=== PATIENT | female | born 1995 | race Caucasian/White ===

== ENCOUNTER 2018-09-02 15:45 | Outpatient (CLI) | payer MEDICAID | END 2018-09-02 17:56 | disposition home or self-care (01) | LOC: OBT 15:45 → L-D 15:45 → OBT 17:56 | DX: O26.843 Uterine size-date discrepancy, third trimester (principal); Z3A.38 38 weeks gestation of pregnancy | CPT/HCPCS: 76815; 76818 ==

== ENCOUNTER 2018-09-07 01:27 | Inpatient (IN) | payer MEDICAID ==
[2018-09-07 02:52] LABS: RUPTURE FETAL MEMBRANES POSITIVE (NEGATIVE)
[2018-09-07] MEDS: LACTATED RINGER'S 1,000 ML IV ×3 (03:28→18:46)
[2018-09-07] MEDS ORDERED: OXYTOCIN 30 UNITS/LR 500 ML IV (03:30)
[2018-09-07] MEDS ORDERED: BUTORPHANOL 2 MG INJ IV (03:30)
[2018-09-07] MEDS ORDERED: METHYLERGONOVINE 0.2 MG INJ IM (03:30)
[2018-09-07] MEDS ORDERED: IBUPROFEN 600 MG TAB PO (03:30)
[2018-09-07] MEDS ORDERED: LIDOCAINE 1% (MPF) 30 ML INJ INJ (03:30)
[2018-09-07 04:09] LABS: ADD MAN DIFF? NO
[2018-09-07 04:20] LABS: WHITE BLOOD COUNT 10.2 10^3/ul (4.8-10.8)
[2018-09-07 04:20] LABS: BASOPHIL # 0.1 10^3/ul (0.0-0.1); BASOPHILS % 0.6 % (0.0-2.0); EOSINOPHILS # 0.2 10^3/ul (0.0-0.5); EOSINOPHILS % 1.8 % (0.0-7.0); HEMATOCRIT 31.7 % (37.0-47.0); HEMOGLOBIN 9.9 g/dl (12.0-16.0); LYMPHOCYTES # 1.7 10^3/ul (0.8-2.9); LYMPHOCYTES % 16.6 % (15.0-51.0); MEAN CORPUSCULAR HEMOGLOBIN 25.6 pg (29.0-33.0); MEAN CORPUSCULAR HGB CONC 31.2 g/dl (32.0-37.0); MEAN CORPUSCULAR VOLUME 81.9 fl (82.0-101.0); MEAN PLATELET VOLUME 11.7 fl (7.4-10.4); MONOCYTE # 0.6 10^3/ul (0.3-0.9); MONOCYTES % 5.9 % (0.0-11.0); NEUTROPHIL # 7.5 10^3/ul (1.6-7.5); NEUTROPHILS % 73.6 % (39.0-77.0); PLATELET COUNT 384 10^3/UL (140-415); RED BLOOD COUNT 3.87 10^6/ul (4.20-5.40)
[2018-09-07 04:32] LABS: INR 0.87; PROTIME 11.9 Sec (11.9-14.9); PT RATIO 0.9
[2018-09-07 04:33] LABS: PARTIAL THROMBOPLASTIN TIME 25.2 Sec (23.0-35.0)
[2018-09-07 05:14] LABS: HEPATITIS B SURFACE ANTIGEN NEGATIVE (NEGATIVE)
[2018-09-07] MEDS: OXYTOCIN 30 UNITS/LR 500 ML IV (11:27)
[2018-09-07 20:01] LABS: RAPID PLASMA REAGIN NONREACTIVE (NR)
[2018-09-08] MEDS: AMPICILLIN 2 GM/NS (PMX) 100 ML IV (01:15)
[2018-09-08] MEDS: LACTATED RINGER'S 1,000 ML IV ×4 (02:56→20:45)
[2018-09-08] MEDS ORDERED: NALOXONE (0.4 MG/ML) INJ IV (03:30)
[2018-09-08] MEDS ORDERED: FENTAnyl 2MCG/ML-ROPIV 0.2% 100 ML BAG EPI (03:30)
[2018-09-08] MEDS: AMPICILLIN 1 GM/NS (PMX) 50 ML IV ×2 (05:05→08:40)
[2018-09-08] MEDS: FERROUS SULFATE (EC) 325 MG TAB PO ×2 (06:46→09:00)
[2018-09-08] MEDS: CARBOPROST 250 MCG INJ IM (13:29)
[2018-09-08] MEDS: MISOPROSTOL 200 MCG TAB PR (13:38)
[2018-09-08] MEDS: OXYTOCIN 30 UNITS/LR 500 ML IV ×3 (14:26→18:06)
[2018-09-08] MEDS: LACTATED RINGER'S 250 ML IV (15:35)
[2018-09-08 18:33] LABS: ABNORMAL IP MESSAGE 1; MEAN CORPUSCULAR HEMOGLOBIN 25.9 pg (29.0-33.0)
[2018-09-08 18:36] LABS: WHITE BLOOD COUNT 31.8 10^3/ul (4.8-10.8)
[2018-09-08 18:36] LABS: MEAN CORPUSCULAR HGB CONC 32.2 g/dl (32.0-37.0); MEAN CORPUSCULAR VOLUME 80.4 fl (82.0-101.0); MEAN PLATELET VOLUME 11.4 fl (7.4-10.4); PLATELET COUNT 333 10^3/UL (140-415); RED BLOOD COUNT 2.24 10^6/ul (4.20-5.40); RED CELL DISTRIBUTION WIDTH 16.6 % (11.5-14.5)
[2018-09-08 18:42] LABS: POSITIVE DIFF @See below
[2018-09-08 18:43] LABS: ADD MAN DIFF? YES
[2018-09-08 18:45] LABS: HEMOGLOBIN 5.8 g/dl (12.0-16.0)
[2018-09-08 18:56] LABS: ANION GAP 7 (5-13); BLOOD UREA NITROGEN 10 mg/dl (7-20); CALCIUM 7.9 mg/dl (8.4-10.2); CARBON DIOXIDE 21 mmol/L (21-31); CHLORIDE 102 mmol/L (97-110); CREATININE 0.62 mg/dl (0.44-1.00); Estimated GFR > 60 mL/min (>60); GLUCOSE 106 mg/dl (70-220); POTASSIUM 3.5 mmol/L (3.5-5.1); SODIUM 130 mmol/L (135-144)
[2018-09-08 19:43] LABS: ANISOCYTOSIS 2+ (0-0); BAND NEUTROPHILS #M 3.4 10^3/ul (0.0-0.6); BAND NEUTROPHILS % (M) 11 % (0-4); LYMPHOCYTES #M 0.3 10^3/ul (0.8-2.9); LYMPHOCYTES % (M) 1 % (15-51); MICROCYTOSIS 2+ (0-0); MONOCYTE #M 1.2 10^3/ul (0.3-0.9); MONOCYTES % (M) 4 % (0-11); PLATELET ESTIMATE NORMAL; POLYCHROMASIA 2+ (0-0); SEG NEUT #M 27.8 10^3/ul (1.6-7.5); SEGMENTED NEUTROPHILS (M) % 84 % (39-77); SMUDGE%M 2 % (0-0)
[2018-09-08] MEDS ORDERED: DEXTROSE 5%-LR 1,000 ML IV (22:24)
[2018-09-08] MEDS ORDERED: CARBOPROST 250 MCG INJ IM (22:30)
[2018-09-08] MEDS ORDERED: ONDANSETRON 4 MG INJ IV (22:30)
[2018-09-08] MEDS ORDERED: MISOPROSTOL 200 MCG TAB PR (22:30)
[2018-09-08] MEDS ORDERED: ZOLPIDEM 5 MG TAB PO (22:30)
[2018-09-08] MEDS ORDERED: DIBUCAINE 1% 30 GM OINT TOP (22:30)
[2018-09-08] MEDS ORDERED: METHYLERGONOVINE 0.2 MG INJ IM (22:30)
[2018-09-08] MEDS ORDERED: ACETAMINOPHEN 325 MG TAB PO (22:30)
[2018-09-08] MEDS ORDERED: DIPHENHYDRAMINE 50 MG INJ IV (22:30)
[2018-09-08] MEDS ORDERED: SENNA/DOCUSATE NA (8.6MG/50MG) TAB PO (22:30)
[2018-09-08] MEDS ORDERED: OXYCODONE/ASPIRIN (4.88/325) TAB PO (22:30)
[2018-09-08] MEDS ORDERED: OXYTOCIN 30 UNITS/LR 500 ML IV (22:30)
[2018-09-08] MEDS: LACTATED RINGER'S 1,000 ML IV* (22:49)
[2018-09-09 00:07] LABS: IMMEDIATE SPIN CROSSMATCH 1 2
[2018-09-09] MEDS: LANOLIN HPA 1 PKT TOP (00:11)
[2018-09-09] MEDS: IBUPROFEN 600 MG TAB PO ×5 (00:11→23:59)
[2018-09-09] MEDS: BENZOCAINE 20% 56 ML SPRAY TOP (00:11)
[2018-09-09] MEDS: WITCH HAZEL/GLYCERIN PAD PR (00:11)
[2018-09-09 07:18] LABS: ADD MAN DIFF? NO
[2018-09-09 07:24] LABS: WHITE BLOOD COUNT 20.6 10^3/ul (4.8-10.8)
[2018-09-09 07:24] LABS: BASOPHILS % 0.1 % (0.0-2.0); EOSINOPHILS # 0.1 10^3/ul (0.0-0.5); EOSINOPHILS % 0.3 % (0.0-7.0); HEMATOCRIT 22.8 % (37.0-47.0); HEMOGLOBIN 7.3 g/dl (12.0-16.0); LYMPHOCYTES # 1.8 10^3/ul (0.8-2.9); LYMPHOCYTES % 8.9 % (15.0-51.0); MEAN CORPUSCULAR HEMOGLOBIN 26.4 pg (29.0-33.0); MEAN CORPUSCULAR VOLUME 82.6 fl (82.0-101.0); MEAN PLATELET VOLUME 11.6 fl (7.4-10.4); MONOCYTE # 1.3 10^3/ul (0.3-0.9); MONOCYTES % 6.4 % (0.0-11.0); NEUTROPHIL # 17.1 10^3/ul (1.6-7.5); NEUTROPHILS % 83.1 % (39.0-77.0); PLATELET COUNT 248 10^3/UL (140-415); RED BLOOD COUNT 2.76 10^6/ul (4.20-5.40); RED CELL DISTRIBUTION WIDTH 15.9 % (11.5-14.5)
[2018-09-09 07:51] LABS: ANION GAP 7 (5-13); BLOOD UREA NITROGEN 9 mg/dl (7-20); CALCIUM 7.6 mg/dl (8.4-10.2); CARBON DIOXIDE 24 mmol/L (21-31); CHLORIDE 105 mmol/L (97-110); CREATININE 0.55 mg/dl (0.44-1.00); Estimated GFR > 60 mL/min (>60); GLUCOSE 79 mg/dl (70-220); POTASSIUM 3.4 mmol/L (3.5-5.1); SODIUM 136 mmol/L (135-144)
[2018-09-09] MEDS: SOD CHLORIDE 0.9% 250 ML IV* (08:08)
[2018-09-09] MEDS: POTASSIUM CHLORIDE (SR) 20 MEQ TAB PO (12:57)
[2018-09-10] MEDS: IBUPROFEN 600 MG TAB PO ×2 (06:08→11:23)
[2018-09-10 08:09] LABS: ADD MAN DIFF? NO
[2018-09-10 08:19] LABS: WHITE BLOOD COUNT 15.8 10^3/ul (4.8-10.8)
[2018-09-10 08:19] LABS: ABNORMAL IP MESSAGE 1; BASOPHILS % 0.2 % (0.0-2.0); EOSINOPHILS # 0.3 10^3/ul (0.0-0.5); EOSINOPHILS % 1.6 % (0.0-7.0); HEMATOCRIT 19.6 % (37.0-47.0); LYMPHOCYTES % 12.4 % (15.0-51.0); MEAN CORPUSCULAR HEMOGLOBIN 27.6 pg (29.0-33.0); MEAN CORPUSCULAR HGB CONC 32.7 g/dl (32.0-37.0); MEAN CORPUSCULAR VOLUME 84.5 fl (82.0-101.0); MEAN PLATELET VOLUME 11.7 fl (7.4-10.4); MONOCYTE # 0.7 10^3/ul (0.3-0.9); MONOCYTES % 4.3 % (0.0-11.0); NEUTROPHIL # 12.6 10^3/ul (1.6-7.5); NEUTROPHILS % 79.8 % (39.0-77.0); PLATELET COUNT 254 10^3/UL (140-415); RED BLOOD COUNT 2.32 10^6/ul (4.20-5.40); RED CELL DISTRIBUTION WIDTH 16.4 % (11.5-14.5)
[2018-09-10 08:20] LABS: POSITIVE DIFF @See below
[2018-09-10 08:22] LABS: HEMOGLOBIN 6.4 g/dl (12.0-16.0); PATH REVIEW? YES
[2018-09-10] MEDS: MEASLES,MUMPS,RUBELLA VACCINE INJ SC* (09:00)
[2018-09-10 09:32] LABS: ANISOCYTOSIS 2+ (0-0); BAND NEUTROPHILS #M 0.9 10^3/ul (0.0-0.6); BAND NEUTROPHILS % (M) 6 % (0-4); ERYTHROBLAST% (NRBC) (M) 1 % (0-0); GIANT THROMBO% (M) 4 % (0-0); LYMPHOCYTES #M 1.2 10^3/ul (0.8-2.9); LYMPHOCYTES % (M) 8 % (15-51); MICROCYTOSIS 2+ (0-0); MONOCYTE #M 0.6 10^3/ul (0.3-0.9); MONOCYTES % (M) 4 % (0-11); PLATELET ESTIMATE NORMAL; POIKILOCYTOSIS 1+ (0-0); POLYCHROMASIA 3+ (0-0); SEG NEUT #M 13.1 10^3/ul (1.6-7.5); SEGMENTED NEUTROPHILS (M) % 82 % (39-77); SMUDGE%M 7 % (0-0)
[2018-09-10] MEDS: DIPHTH/TET/ACEL PERTUSS (ADULT) 0.5 ML VIAL IM* (11:26)
== END 2018-09-10 15:10 | disposition home or self-care (01) | DRG 806 ==
LOC: OBT 01:27 → L-D 01:27 → OBT 03:00 → L-D 03:00 → PP1 09-08 22:11
PROVIDERS: Obstetrics & Gynecology
PROC: 10E0XZZ Delivery of Products of Conception, External Approach (ICD-10-PCS; principal; 2018-09-08)
PROC: 0W8NXZZ Division of Female Perineum, External Approach (ICD-10-PCS; 2018-09-08)
PROC: 30233N1 Transfusion of Nonautologous Red Blood Cells into Peripheral Vein, Percutaneous Approach (ICD-10-PCS; 2018-09-08)
DX: O69.81X0 Labor and delivery complicated by cord around neck, without compression, not applicable or unspecified (principal); D62 Acute posthemorrhagic anemia; Z37.0 Single live birth; O99.02 Anemia complicating childbirth; Z3A.38 38 weeks gestation of pregnancy
CPT/HCPCS: 36430; 62322; 74176; 80048; 84112; 85025; 85610; 85730; 86592; 86850; 86900; 86901; 86920; 87086; 87340; 90715; 93005; 99464